=== PATIENT | male | born 1975 | race Hispanic/Latino ===

== ENCOUNTER 2024-12-02 15:25 | Emergency (ER) | payer BC, SELFPAY ==
[2024-12-02 16:28] LABS: #Basophils 0.09 10x3/uL (0.0-0.2); #Eosinophils 0.07 10x3/uL (0.0-0.7); #Monocytes 0.64 10x3/uL (0.11-0.59); #Neutrophils 4.49 10x3/uL (1.40-6.50); %Basophils 1.2 % (0.0-1.0); %Eosinophils 1.0 % (0.0-10.0); %Lymphocytes 27.3 % (21.0-51.0); %Monocytes 8.8 % (0.0-10.0); %Neutrophils 61.6 % (42.0-75.0); Hematocrit 46.5 % (42.0-52.0); Hemoglobin 16.6 g/dL (14.0-18.0); Mean Corpuscular Hemoglobin 31.3 pg (27.0-31.0); Mean Corpuscular Volume 87.6 fL (78.0-98.0); Platelet Count 277 10x3/uL (130-400); Red Blood Cell (RBC) Count 5.31 mill/uL (4.70-6.10); White Blood Cell (WBC) Count 7.29 10x3/uL (4.8-10.8)
[2024-12-02 16:50] LABS: ALT (SGPT) 61 U/L (Less than 45); AST (SGOT) 56 U/L (11-34); Albumin 4.7 g/dL (3.1-4.5); Alkaline Phosphatase 55 U/L (40-110); Anion Gap 15 mmol/L (10-20); BUN (Urea Nitrogen) 10 mg/dL (8.9-20.6); Bilirubin, Total 0.6 mg/dL (0.3-1.2); Calc. Creatinine Clearance 0 mL/min (70-130); Calcium 9.9 mg/dL (7.8-10.44); Carbon Dioxide 22 mmol/L (22-29); Chloride 110 mmol/L (98-107); Globulin 3.1 g/dL (2.4-3.5); Glucose 106 mg/dL (70-105); Potassium 4.1 mmol/L (3.5-5.1); Sodium 143 mmol/L (136-145)
[2024-12-02] MEDS ORDERED: cloNIDine 0.1 MG TAB ONE (21:19)
[2024-12-02] MEDS ORDERED: hydrALAZINE 20 MG/ML VIAL ONE (22:14)
== END 2024-12-02 23:07 | disposition home or self-care (01) ==
LOC: ERS 15:25
DX: I10 Essential (primary) hypertension (principal); Z87.891 Personal history of nicotine dependence
CPT/HCPCS: 71045; 80053; 84484; 85025; 93005; J0360